=== PATIENT | female | born 1940 | race Caucasian/White ===

== ENCOUNTER → 2016-10-24 | Outpatient (CLI) | payer OTHER ==
--- NOTE | 2016-10-24 17:18 | CPEEG ---
[f rep st] ELECTROENCEPHALOGRAM DATE OF STUDY: 10/24/2016 INTERPRETATION: This EEG is abnormal due to the presence of potentially epileptogenic abnormalities over the left frontotemporal head regions. These findings would be consistent with a focal seizure disorder. In addition, there is a mild degree of focal slowing over the left temporal head region. These findings would be consistent with a mild focal disturbance of cerebral function is this region. REPORT: This EEG contains 10 Hz alpha activity over the posterior head regions. There was a mild degree of focal slowing over the left temporal head region, primarily composed of [id number] amplitude theta activity on an intermittent basis. The primary feature of this recording was the presence of left frontotemporal spikes, sharp waves, and left temporal intermittent rhythmic delta activity (TIRDA). These epileptogenic findings were present at baseline. There was no additional activation with photic stimulation or hyperventilation. The patient became drowsy and fell asleep during the study. During drowsiness and sleep, there was increased activation of left frontotemporal spikes and sharp waves. A message was sent through the electronic health record to the ordering physician (Dr. Espinosa) regarding these abnormal EEG findings. /[id number]/MODL MTDD
== END ==
LOC: FCPNEURO 10:48
PROVIDERS: ATTEND Psychiatry & Neurology Neurology
DX: G40.209 Localization-related (focal) (partial) symptomatic epilepsy and epileptic syndromes with complex partial seizures, not intractable, without status epilepticus (principal); R94.01 Abnormal electroencephalogram [EEG]

== ENCOUNTER → 2016-12-04 | Outpatient (CLI) | payer OTHER ==
[~2016-12-04] MED LIST: GADOBUTROL 10 ML VIAL IVP ONE
== END ==
LOC: FIMAGING 15:12
PROVIDERS: ATTEND Psychiatry & Neurology Neurology
DX: G31.9 Degenerative disease of nervous system, unspecified (principal); R90.89 Other abnormal findings on diagnostic imaging of central nervous system; G40.209 Localization-related (focal) (partial) symptomatic epilepsy and epileptic syndromes with complex partial seizures, not intractable, without status epilepticus
CPT/HCPCS: 70553; A9585

== ENCOUNTER → 2017-07-31 | Outpatient (CLI) | payer OTHER | LOC: FIMAGING 11:56 | PROVIDERS: ATTEND Psychiatry & Neurology Neurology | DX: G40.209 Localization-related (focal) (partial) symptomatic epilepsy and epileptic syndromes with complex partial seizures, not intractable, without status epilepticus (principal); G31.9 Degenerative disease of nervous system, unspecified; M48.02 Spinal stenosis, cervical region | CPT/HCPCS: 70553; A9585 ==